=== PATIENT | male | born 1935 | race Caucasian/White ===

== ENCOUNTER 2016-11-08 12:27 | Emergency (ER) | payer OTHER, MEDICARE ==
[2016-11-08 12:44] VITALS: BMI 20.2
--- NOTE | 2016-11-08 12:50 | DR.GENAD ---
HPI - HPI Comment HPI Comment: HERE VIA EMS. PATIENT HAVE HAD HEMATURIA FOR 2 DAYS. TODAY WHILE TAKING OUT TRASH ON HIS GULF CART, HE HAD SYNCOPAL EPISODE. HE WAS LAYING IN A TIWARI OF BLOOD UP TO ONE LITER. HE DENIES CHEST PAIN. HE IS ON PLAVIX. ATE BREAKFAST 08:30AM TODAY. - Complaint/Symptoms Chief Complaint Doctors Comments: SYNCOPAL EPISODE, HEMATURIA. - Nurses notes reviewed Nurses Notes Review: Yes - Source History Provided: Patient, Family Member - Mode of Arrival Mode of Arrival: EMS - Timing Came on: Suddenly - Duration Duration: Since Onset Duration: Days - Severity Severity: Moderate PMH - PMH Past Surgical History: Yes ROS - Review of Systems Constitutional: Weakness, Fatigue. negative: Chills, Fever Eyes: No Symptoms Reported. negative: Eye Pain, Discharge ENTM: No Symptoms Reported. negative: Ear Pain, Nose Discharge, Nose Congestion , Throat Pain Respiratoy: No Symptoms Reported. negative: Productive Cough, Non-Productive Cough, Short of Breath, Wheezing, Hemoptysis Cardiovascular: Syncope. negative: Chest Pain Gastrointestinal/Abdominal: No Symptoms Reported. negative: Abdominal Pain, Constipation, Diarrhea, Nausea, Vomiting Genitourinary: Hematuria. negative: Dysuria, Frequency Neurological: Weakness, Dizziness. negative: Headache Musculoskeletal: No Symptoms Reported Integumentary: No Symptoms Reported Hematologic/Lymphatic: Easy Bruising Endocrine: No Symptoms Reported All Other Systems: Reviewed and Negative PE - Vital Signs Vitals: Temperature 98.0 F Pulse Rate [Right Brachial] 87 Pulse Rate [Sitting] 99 Pulse Rate [Lying] 94 Pulse Rate 84 Respiratory Rate 20 Blood Pressure [Right Arm] 102/51 Blood Pressure [Sitting] 151/65 Blood Pressure [Lying] 145/64 Blood Pressure 133/60 O2 Sat by Pulse Oximetry 96 - General Limitations: No Limitations General Appearance: Alert - Head Head Exam: Normal Inspection - Eyes Eye exam: Normal Appearance, PERRL, EOMI - ENT ENT Exam: Normal External Ear Exam External Ear Exam: Normal External Inspection TM/Canal Exam: Bilateral Normal Nose Exam: Normal Nose Exam Mouth Exam: Normal Inspection Throat Exam: Normal Inspection - Neck Neck Exam: Trachea Midline - Chest Chest Inspection: Symmetric Chest Wall Rise - Respiratory Respiratory Exam: Normal Lung Sounds Bilat Respiratory Exam: Bilateral Rhonchi, Lower Rhonchi - Cardiovascular Cardiovascular Exam: Regular Rate, Normal Rhythm, Normal Heart Sounds - Abdominal Exam Abdominal Exam: Normal Bowel Sounds, Soft. negative: Tenderness - Extremities Extremities Exam: Normal Inspection - Back Back Exam: Normal Inspection - Neurologic Neurological Exam: Alert, Oriented X3 - Psychiatric Psychiatric Exam: Normal Affect, Normal Mood - Skin Skin Exam: Normal Color MDM - Additional Information Additional Information Obtained From: Family - Differential Diagnosis Differential Diagnosis: HEMATURIA, KIDNEY STONE, SYNCOPAL EPISODES Course - Treatment Treatment: SEE ORDERS. - Consultation Consultation Comments: DISCUSS PATIENT WITH DR. BAÑUELOS, UROLOGIST IN [place]. HE ACCEPTED PATIENT FOR TRANSFER. - Education/Counseling Education/Counseling: Patient, Family, Education Educated On: Diagnosis ROR - Labs Reviewed Laboratory Results Reviewed?: Yes Result Diagrams: 11/08/16 16:25 11/08/16 12:58 Laboratory: WBC 10.7 X10^3/uL (3.6-10.0) H 11/08/16 12:58 RBC 2.95 X10^6/uL (4.7-6.0) L 11/08/16 12:58 Hgb 8.6 g/dL (13.5-18.0) L 11/08/16 16:25 Hct 24.9 % (42.0-54.0) L 11/08/16 16:25 MCV 89.8 fL (80.0-100.0) 11/08/16 12:58 MCH 30.9 pg (27.0-34.0) 11/08/16 12:58 MCHC 34.5 g/dL (33.0-35.0) 11/08/16 12:58 RDW 14.4 % (11.6-16.5) 11/08/16 12:58 Plt Count 160 X10^3/uL (150.0-450.0) 11/08/16 12:58 MPV 8.5 fL (7.4-11.0) 11/08/16 12:58 Neut % 80.5 % (42.0-75.0) H 11/08/16 12:58 Lymph % 13.3 % (21.0-51.0) L 11/08/16 12:58 [place] % 5.5 % (0.0-13.0) 11/08/16 12:58 Eos % 0.5 % (0.9-2.9) L 11/08/16 12:58 Baso % 0.2 % (0.2-1.0) 11/08/16 12:58 Neut # 8.7 x10^3/uL (2.2-4.8) H 11/08/16 12:58 Lymph # 1.4 X10^3/uL (1.3-2.9) 11/08/16 12:58 [place] # 0.6 x10^3/uL (0.3-0.8) 11/08/16 12:58 Eos # 0.0 x10^3/uL (0.0-0.2) 11/08/16 12:58 Baso # 0.0 X10^3/uL (0.0-0.1) 11/08/16 12:58 Absolute Nucleated RBC 0.0 /100WBC 11/08/16 12:58 INR Target Range - 11/08/16 12:58 INR 1.08 (0.8-1.3) 11/08/16 12:58 PTT 24.8 SECONDS (22.9-36.5) 11/08/16 12:58 PTT Comment - 11/08/16 12:58 Sodium 141 mmol/L (136-145) 11/08/16 12:58 Corrected Sodium 144 mmol/L (136-145) 11/08/16 12:58 Potassium 4.9 mmol/L (3.5-5.1) 11/08/16 12:58 Chloride 105 mmol/L (98-107) 11/08/16 12:58 Carbon Dioxide 27.8 mmol/L (21-32) 11/08/16 12:58 BUN 32 mg/dL (7-18) H 11/08/16 12:58 Creatinine 1.79 mg/dL (0.70-1.30) H 11/08/16 12:58 Est GFR (MDRD) Af Amer 47 (>60) L 11/08/16 12:58 Est GFR (MDRD) Non-Af 39 (>60) L 11/08/16 12:58 Glucose 237 mg/dL (65-99) H 11/08/16 12:58 Calcium 8.7 mg/dL (8.5-10.1) 11/08/16 12:58 Corrected Calcium 9.3 mg/dL (8.5-10.1) 11/08/16 12:58 Total Bilirubin 0.40 mg/dL (0.2-1.0) 11/08/16 12:58 AST 14 Units/L (15-37) L 11/08/16 12:58 ALT 18 Units/L (12-78) 11/08/16 12:58 Alkaline Phosphatase 81 Units/L (46-116) 11/08/16 12:58 Creatine Kinase 58 Units/L (39-308) 11/08/16 12:58 CK-MB (CK-2) 1.2 ng/mL (0-4.0) 11/08/16 12:58 CK/CKMB % Calc 2.1 % (<4) 11/08/16 12:58 Troponin I < 0.02 ng/mL (0-1.5) 11/08/16 12:58 Total Protein 6.1 g/dL (6.4-8.2) L 11/08/16 12:58 Albumin 3.2 g/dL (3.4-5.0) L 11/08/16 12:58 Globulin 2.9 g/dL (2.5-4.5) 11/08/16 12:58 Albumin/Globulin Ratio 1.1 Ratio (1.1-2.1) 11/08/16 12:58 - XRAY XRAY Interpreted by: Radiologist XRAY Findings: REPORT DISCUSS WITH PATIENT AND HIS . - EKG Rhythm: NSR (EKG NOTED) - Diagnosis Discharge Problem: Hematuria Syncopal episodes Qualifiers: Syncope type: unspecified Qualified Code(s): R55 - Syncope and collapse - Discharge Plan Disposition: XFER [facility] Condition: Stable - Follow ups/Referrals Follow ups/Referrals: WEI OLIVERA [Primary Care Provider] - 3 days - Instructions
[2016-11-08 13:17] LABS: BASOPHILS % (AUTO) 0.2 % (0.2-1.0); EOSINOPHILS % (AUTO) 0.5 % (0.9-2.9); HEMATOCRIT 26.5 % (42.0-54.0); HEMOGLOBIN 9.1 g/dL (13.5-18.0); LYMPHOCYTES # (AUTO) 1.4 X10^3/uL (1.3-2.9); LYMPHOCYTES % (AUTO) 13.3 % (21.0-51.0); MEAN CORPUSCULAR HEMOGLOBIN 30.9 pg (27.0-34.0); MEAN CORPUSCULAR HGB CONC 34.5 g/dL (33.0-35.0); MEAN CORPUSCULAR VOLUME 89.8 fL (80.0-100.0); MEAN PLATELET VOLUME 8.5 fL (7.4-11.0); MONOCYTES # (AUTO) 0.6 x10^3/uL (0.3-0.8); MONOCYTES % (AUTO) 5.5 % (0.0-13.0); NEUTROPHILS # (AUTO) 8.7 x10^3/uL (2.2-4.8); NEUTROPHILS % (AUTO) 80.5 % (42.0-75.0); PLATELET COUNT 160 X10^3/uL (150.0-450.0); RED BLOOD COUNT 2.95 X10^6/uL (4.7-6.0); RED CELL DISTRIBUTION WIDTH 14.4 % (11.6-16.5); WHITE BLOOD COUNT 10.7 X10^3/uL (3.6-10.0)
[2016-11-08 13:23] LABS: BLOOD UREA NITROGEN 32 mg/dL (7-18); CALCIUM 8.7 mg/dL (8.5-10.1); CARBON DIOXIDE 27.8 mmol/L (21-32); CHLORIDE 105 mmol/L (98-107); COR NA(FOR HYPERGLY) 144 mmol/L (136-145); CREATININE 1.79 mg/dL (0.70-1.30); GLUCOSE 237 mg/dL (65-99); SODIUM 141 mmol/L (136-145); TROPONIN I < 0.02 ng/mL (0-1.5); eGFR BLACK RACES 47 (>60); eGFR NON BLACK RACES 39 (>60)
[2016-11-08 13:28] LABS: ALANINE AMINOTRANSFERASE 18 Units/L (12-78); ALBUMIN 3.2 g/dL (3.4-5.0); ALKALINE PHOSPHATASE 81 Units/L (46-116); ASPARTATE AMINO TRANSFERASE 14 Units/L (15-37); CKMB % 2.1 % (<4); COR CA(FOR HYPOALB) 9.3 mg/dL (8.5-10.1); CREATINE KINASE 58 Units/L (39-308); CREATINE KINASE MB 1.2 ng/mL (0-4.0); TOTAL PROTEIN 6.1 g/dL (6.4-8.2)
[2016-11-08] MEDS ORDERED: NS 1000 ML 1,000 ML ONE (13:32)
[2016-11-08] MEDS ORDERED: NS 1000 ML 300 ML IV ONE (14:19)
--- NOTE | 2016-11-08 15:31 | CT ---
HISTORY: Altered mental status Study: CT head without contrast Comparison: None Technique: Axial non contrast images with coronal and sagittal reformats. Dose reduction procedures were use with MA/kv adjusted for body size. Findings: The ventricles are normal in size, shape, and position. Mild age-related cortical atrophy is present . There is decreased attenuation in the periventricular white matter suggestive of small vessel vasc ular disease. There is no evidence for recent or remote CVA, hemorrhage, mass lesion, or extra-axial fluid collection. There is a lobular soft tissue mass in the left maxillary sinus measuring approxi mately 2.55 by 2.2 centimeters. It has displaced and possibly violated the medial wall of the maxill mary sinus into the nasal cavity. Further ENT evaluation is recommended. Neoplasm cannot be excluded. The remainder the paranasal sinuses visualized were clear. 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 Neoplasm cannot be excluded. E NT evaluation is recommended. Reported By:
--- NOTE | 2016-11-08 15:55 | CT ---
HISTORY: Patient had small amount of bleeding from penis yesterday. Patient was found today passed o ut in a puddle of blood. Study: CT abdomen and pelvis without contrast Comparison: CT abdomen/pelvis dated December 04, 2012. Technique: Multiple axial images of the abdomen and pelvis were obtained from the lung bases to the pubic symph ysis without the administration of IV contrast. Dose reduction techniques including Automated Expos ure Control (AEC) and adjustment of mA and kV were utilized. Findings: Bibasilar scarring versus atelectasis. Otherwise, the visualized portions of the lung bases are unre markable. Likely vascular calcifications within the bilateral kidneys. 2.2 cm left superior renal po le hypodense lesion with Hounsfield units of 27 (previously measured 1.9 cm). 1.9 cm left inferior r enal pole hypodense lesion with Hounsfield units of 25 (previously measured 1.7 cm). There is an ill -defined hyperdense mass within the bladder lumen measuring 6.1 cm AP x 8.6 cm transverse by 8.7 cm craniocaudal in greatest dimension. This is new from prior exam and has internal Hounsfield units of 73. No associated hydronephrosis or hydroureter. No obvious masses are seen throughout the remainde r of the collecting system. The liver, spleen, pancreas, and adrenal glands are unremarkable in thei r CT appearance. The gallbladder is unremarkable in its CT appearance. No significant mesenteric ly mphadenopathy or stranding can be observed. No free fluid or free air is seen within the abdomen. The large and small bowel appear normal. The appendix appears normal. Prostatic hypertrophy. An perry ctronic device is seen over the left buttocks. Degenerative changes of the visualized spine. No aggr essive osseous lesions. IMPRESSION: 1. There is an 8.7 cm ill-defined hyperdense mass within the bladder lumen as above. This may repre sent bladder carcinoma versus clot. Recommend Urology consultation and direct visualization. 2. Indeterminate hypodense lesions left kidney as above. Recommend dedicated [address] for fu rther characterization. Reported By:
[2016-11-08 16:45] LABS: HEMATOCRIT 24.9 % (42.0-54.0); HEMOGLOBIN 8.6 g/dL (13.5-18.0)
[2016-11-08] MEDS ORDERED: ROCEPHIN VIAL 1 GM 1 GM in NS 50 ML IV + SPIKE MINIBAG* 50 ML IV ONE (17:02)
[2016-11-08] MEDS ORDERED: ROCEPHIN 1 GM IV PREMIX * OUT OF STOCK 50 ML IV ONE (17:05)
[2016-11-08 17:24] VITALS: BP 122/55
== END 2016-11-08 17:40 | disposition short-term general hospital (02) ==
LOC: ER 13:00
DX: R55 Syncope and collapse (principal); R31.9 Hematuria, unspecified; G31.9 Degenerative disease of nervous system, unspecified
CPT/HCPCS: 36415; 70450; 74176; 80053; 82550; 82553; 84484; 85014; 85018; 85025; 85610; 85730; 86850; 86900; 86901; 93005; 93010; 96365; 96367; 96374; 99283; 99284; A4222; J0696